=== PATIENT | female | born 1975 | race Caucasian/White ===

== ENCOUNTER → 2021-11-04 | Outpatient (CLI) | payer OTHER ==
[~2021-11-04] MED LIST: ATOM100C PO; B-12100021 PO; BUPR-69 PO; BUPR75TA5 PO; BUSP30TA PO; CYMB60CA4 PO; LEVO50TA5 PO; OXYB5TAB10 PO; VITA-243 PO; ZONI100C17 PO
== END ==
LOC: M IRPRO 10-25 09:22
PROVIDERS: ATTEND Orthopaedic Surgery
DX: M54.2 Cervicalgia (principal)

== ENCOUNTER 2022-11-29 08:53 | Observation (INO) | payer OTHER ==
[~2022-11-29] VITALS: Ht 165.1 cm; Wt 77.6 kg
[~2022-11-29 08:53] MED LIST changes: +BUPR150T12 PO; +BUPR300T92 PO; +HEPARIN SOD (PORCINE) 5000UNITS/ML 1ML VIAL/SYRINGE SQ ONE; +LIDOCAINE 2% 100MG/5ML SDV (FOR ANES.) As Ordered ONE; +MIDAZOLAM INJ 2MG/2ML VIAL As Ordered ONE; +ONDANSETRON 4MG 2ML VIAL As Ordered ONE; +PROA1AER2 INH; +SUMA6CAR SC; +TRAZ150T90 PO; +TROS20TA3 PO; -ZONI100C17 PO; +ZONI100C67 PO; +ceFAZolin SOD 2 GM in IV 1 EA IV ONE; +fentaNYL 250 MCG/5 ML INJECTION As Ordered ONE; +propofoL 200 MG/20 ML VIAL As Ordered ONE
[2022-11-29] MEDS ORDERED: LR 1,000 ML IV SCH (09:10)
[2022-11-29] MEDS ORDERED: CALTTAB6 PO (09:24)
[2022-11-29] MEDS ORDERED: CENT1TAB7 PO (09:24)
[2022-11-29] MEDS ORDERED: CETI-24 PO (09:53)
[2022-11-29] MEDS ORDERED: VENTAER INH (09:53)
[2022-11-29] MEDS ORDERED: MUPI2OI TOP (09:53)
[2022-11-29] MEDS ORDERED: HOME MED LIST COMPLETE! XX SCH (09:55)
[2022-11-29] MEDS ORDERED: BUPIVACAINE HCL 0.25% 10ML VIAL As Ordered ONE (10:22)
[2022-11-29] MEDS ORDERED: GENTAMICIN SULF 80MG/2ML VIAL As Ordered ONE (10:22)
[2022-11-29] MEDS ORDERED: BUPIVACAINE LIPOSOME/PF 1.3% 20ML VIAL (13.3MG/ML)(EXPAREL) As Ordered ONE (10:22)
[2022-11-29] MEDS ORDERED: ROCURONIUM BROMIDE 50MG/5ML VIAL As Ordered ONE ×2 (10:24→12:05)
[2022-11-29] MEDS ORDERED: SEVOFLURANE INHAL SOLN 250 ML BTL As Ordered ONE (10:27)
[2022-11-29] MEDS ORDERED: LACRILUBE (AKWA TEARS) OPHTH OINT 3.5GM As Ordered ONE (10:32)
[2022-11-29] MEDS ORDERED: HYDROmorphone HCL 2MG/ML 1ML VIAL As Ordered ONE (11:50)
[2022-11-29] MEDS ORDERED: METOCLOPRAMIDE INJ 10MG/2ML VIAL As Ordered ONE (11:50)
[2022-11-29] MEDS ORDERED: ACETAMINOPHEN 1000MG 100ML IV BAG As Ordered ONE (11:50)
[2022-11-29] MEDS ORDERED: SUGAMMADEX SODIUM 500 MG/5 ML VIAL (BRIDION) As Ordered ONE (11:50)
[2022-11-29] MEDS ORDERED: PHENYLephrine 500MCG 5ML (100MCG/ML) SYRINGE As Ordered ONE (12:28)
[2022-11-29] MEDS ORDERED: ONDANSETRON 4MG 2ML VIAL IV PRN ×2 (14:50→14:55)
[2022-11-29] MEDS ORDERED: oxyCODONE 5MG TAB PO PRN (14:50)
[2022-11-29] MEDS ORDERED: MORPHINE 2 MG/ML 1ML VIAL IV PRN (14:50)
[2022-11-29] MEDS ORDERED: traMADol 50 MG TAB PO PRN (14:55)
[2022-11-29] MEDS ORDERED: ACETAMINOPHEN TAB 650MG DOSE (2X325MG) PO PRN (14:55)
[2022-11-29] MEDS: fentaNYL 100 MCG/2 ML INJECTION IV PRN ×2 (15:22→15:32)
[2022-11-29] MEDS ORDERED: HALOPERIDOL 5MG/ML 1ML VIAL IV ONE (15:40)
[2022-11-29] MEDS ORDERED: ceFAZolin SOD 2 GM in IV 1 EA IV ONE (16:00)
[2022-11-29] MEDS: LR 1,000 ML IV SCH (17:32)
[2022-11-29 17:33] VITALS: BP 128/86
[2022-11-29 18:08] VITALS: BP 128/85
[2022-11-29 19:07] VITALS: BP 126/84
[2022-11-29 20:15] VITALS: BP 126/83
[2022-11-29] MEDS: busPIRone 10 MG TAB PO SCH (20:55)
[2022-11-29] MEDS ORDERED: CETIRIZINE (ZyrTEC) 10 MG TAB PO SCH (21:00)
[2022-11-29 21:30] VITALS: BP 125/83
[2022-11-30 01:12] VITALS: BP 135/94
[2022-11-30] MEDS: PERCOCET 5MG/325MG TAB PO PRN ×2 (01:31→10:20)
[2022-11-30] MEDS ORDERED: diphenhydrAMINE 25MG CAP PO ONE (03:15)
[2022-11-30 05:13] VITALS: BP 134/92
[2022-11-30] MEDS ORDERED: LEVOTHYROXINE 50MCG TABLET (0.05MG) PO SCH (06:00)
[2022-11-30] MEDS: LR 1,000 ML IV SCH (06:06)
[2022-11-30] MEDS: busPIRone 10 MG TAB PO SCH (08:58)
[2022-11-30] MEDS ORDERED: DULoxetine 30MG CAPSULE (CYMBALTA) PO SCH (09:00)
[2022-11-30] MEDS ORDERED: buPROPion **XL** TABLET 150MG (WELLBUTRIN XL) PO SCH ×2 (09:00)
[2022-11-30 10:00] VITALS: BP 126/87
[2022-11-30] MEDS ORDERED: PERCOCET PO (10:54)
== END 2022-11-30 13:20 | disposition home or self-care (01) ==
LOC: M SDC 08:53 → M MS5PR 08:54 → M ED INP 14:55 → M MS5PR 17:25
PROVIDERS: ADMIT Plastic Surgery Surgery of the Hand; ATTEND Plastic Surgery Surgery of the Hand
DX: N62 Hypertrophy of breast (principal); N64.81 Ptosis of breast; K21.9 Gastro-esophageal reflux disease without esophagitis; G43.909 Migraine, unspecified, not intractable, without status migrainosus; Z98.84 Bariatric surgery status; F41.9 Anxiety disorder, unspecified; F32.A Depression, unspecified; F90.9 Attention-deficit hyperactivity disorder, unspecified type; J45.909 Unspecified asthma, uncomplicated; Z79.899 Other long term (current) drug therapy
CPT/HCPCS: 19316; 19318; 81025; 87635; 88305; C9290; J0131; J0690; J1100; J1170; J1580; J1630; J2250; J2370; J2405; J2765; J3010; S0020